=== PATIENT | male | born 1995 | race Caucasian/White ===

== ENCOUNTER 2016-09-20 13:33 | Emergency (ER) | payer BC ==
[~2016-09-20] VITALS: Ht 180.3 cm; Wt 104.5 kg
[2016-09-20 13:46] VITALS: BP 143/94; TEMP 98.3
[2016-09-20] MEDS ORDERED: FLEXERIL 1010 MG/TAB PO (15:43)
[2016-09-20 15:50] VITALS: PULSE 85
== END 2016-09-20 15:50 | disposition home or self-care (01) ==
LOC: COL.ER 13:33
DX: M54.89 Other dorsalgia (principal); R07.89 Other chest pain; R07.1 Chest pain on breathing
CPT/HCPCS: J1885; J2360